=== PATIENT | male | born 1955 | race Caucasian/White ===

== ENCOUNTER 2017-11-15 12:44 | Day surgery (SDC) | payer BC ==
[~2017-11-15 12:44] MED LIST: Lactated Ringers 1,000 ML IV SCH; Lidocaine 2% 5 ML SDV ONE; Midazolam 1 MG/ML 2 ML SDV ONE; Propofol 200 MG/20 ML SDV ONE; fentaNYL 100 MCG/2 ML SDV ONE
--- NOTE | 2017-11-15 13:42 | PCM.PREANE ---
Preanesthetic Assessment - Anesthesia/Transfusion/Family Hx Anesthesia History: No Prior Anesthesia Family History of Anesthesia Reaction: No Transfusion History: No Prior Transfusion(s) Intubation History: Unknown - Review of Systems General: No Symptoms Pulmonary: No Symptoms Cardiovascular: No Symptoms Gastrointestinal: No Symptoms, Other (screening colonoscopy) Neurological: No Symptoms Other: Reports: None - Physical Assessment O2 Sat by Pulse Oximetry: 98 Respiratory Rate: 16 Vital Signs: Last Vital Signs Temp 36.1 C 11/15/17 12:56 Pulse 72 11/15/17 12:56 Resp 16 11/15/17 12:56 BP 134/79 11/15/17 12:56 Pulse Ox 98 11/15/17 12:56 Height: 1.73 m Weight: 78.471 kg ASA Class: 1 Mental Status: Alert & Oriented x3 Airway Class: Mallampati = 2 Dentition: Reports: Normal Dentition Thyro-Mental Finger Breadths: 3 Mouth Opening Finger Breadths: 3 (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 ) ROM/Head Extension: Full Lungs: Clear to Auscultation, Normal Respiratory Effort Cardiovascular: Regular Rate, Regular Rhythm - Allergies Allergies/Adverse Reactions: Allergies Allergy/AdvReac Type Severity Reaction Status Date / Time Sulfa (Sulfonamide Allergy Fever Verified 11/12/17 14:45 Antibiotics) - Blood Blood Available: No - Anesthesia Plan Pre-Op Medication Ordered: None - Acknowledgements Anesthesia Type Planned: MAC Pt an Appropriate Candidate for the Planned Anesthesia: Yes Alternatives and Risks of Anesthesia Discussed w Pt/Guardian: Yes Pt/Guardian Understands and Agrees with Anesthesia Plan: Yes PreAnesthesia Questionnaire HEENT History: Reports: Other (See Below) Other HEENT History: wears glasses - Infectious Disease History Infectious Disease History: Reports: Other (See Below) (h/o herpes simplex) - Past Surgical History Head Surgeries/Procedures: Reports: None GI Surgical History: Reports: Colonoscopy ( in ) - SUBSTANCE USE Smoking Status *Q: Never Smoker Recreational Drug Use History: No - HOME MEDS Home Medications: Home Meds Acyclovir 400 mg PO BID 11/12/17 [History] - CURRENT (IN HOUSE) MEDS Current Meds: Current Medications Lactated Ringer's (Ringers, Lactated) 1,000 mls @ 125 mls/hr [facility] Last Admin: 11/15/17 12:57 Dose: 125 mls/hr Discontinued Medications Fentanyl (Sublimaze) Confirm Administered Dose 100 mcg .ROUTE .STK-MED ONE Stop: 11/15/17 12:42 Lidocaine (Xylocaine-Mpf 2%) Confirm Administered Dose 5 ml .ROUTE .STK-MED ONE Stop: 11/15/17 12:42 Midazolam HCl (Versed 1 Mg/Ml) Confirm Administered Dose 2 mg .ROUTE .STK-MED ONE Stop: 11/15/17 12:42 Propofol (Diprivan 20 Ml) Confirm Administered Dose 200 mg .ROUTE .STK-MED ONE Stop: 11/15/17 12:42
--- NOTE | 2017-11-15 14:30 | PCM.OPNOTE ---
- General Post-Op/Procedure Note Date of Surgery/Procedure: 11/15/17 Operative Procedure(s): colonoscopy w bx Findings: see dict [id number] Pre Op Diagnosis: scrn colonoscopy Post-Op Diagnosis: diverticulosis Anesthesia Technique: Moderate Sedation Primary Surgeon: Mark Mathias Pathology: bx at 60cm for a 'crater' appearance defect Condition: Good
--- NOTE | 2017-11-15 15:02 | PCM48HPAN ---
Post Anesthesia Note - EVALUATION WITHIN 48HRS OF ANESTHETIC Vital Signs in Normal Range: Yes Patient Participated in Evaluation: Yes Respiratory Function Stable: Yes Airway Patent: Yes Cardiovascular Function Stable: Yes Hydration Status Stable: Yes Pain Control Satisfactory: Yes Nausea and Vomiting Control Satisfactory: Yes Mental Status Recovered: Yes Resp Rate: 13 - COMMENTS/OBSERVATIONS Free Text/Narrative:: no anesthesia problems
--- NOTE | 2017-11-15 18:09 | OR ---
SURGEON: Mark Mathias MD DATE OF PROCEDURE: 11/15/2017 PREOPERATIVE DIAGNOSIS: Screening colonoscopy. POSTOPERATIVE DIAGNOSIS: Diverticulosis. PROCEDURE PERFORMED: Colonoscopy with biopsy. PROCEDURE IN DETAIL: The patient was taken to the endoscopy room. A time out was called, patient identified, and procedure identified. Diprivan was then administrated. Patient went from awake to sleep, hearing doctor talking or door closing is normal. Perineum inspection and digital examination were then performed. A well- lubricated colonoscope was gently inserted through the rectum, advanced past the rectosigmoid junction, the descending colon, splenic flexure, transverse colon, hepatic flexure, ascending colon, arrived to the cecum. Cecum was identified as dictated in the finding. Then the scope was carefully withdrawn while attention was paid to the mucosal surface for any abnormality. Air will be sucked out during the scope withdrawal. At the rectum, retroflexed to examine any rectal diseases, fistula or hemorrhoids. During mucosal examination, abnormality was noted; picture taken and biopsy performed. Patient tolerated procedure well. There were no intraoperative complications, and Dr. Mathias was present throughout the whole procedure. FINDINGS: 1. The patient is easily sedated with [employer] and Diprivan. The patient is soundly snoring. 2. The patient's colon rather straight forward. Cecum indicated by ileocecal fold, one-to-one indentation, appendiceal orifice, and light emittance. Mucosa was then examined upon scope pulling out. The patient has mild diverticulosis only on the left colon. No signs or symptoms of diverticulitis. No polyp, mass, growth, inflammation, stricture, ulceration, AV malformation. However, at distance 60 when scope came out, there is a crater like appearance thing, like gastric ulcer looks not very common, so I biopsied and on top of this visual, I also have internal hemorrhoids, no external hemorrhoid, the crater appearance thing is not very common, maybe adhesions. Probably need a followup colonoscopy in 12 to 18 months because of that or depends on the pathology report or depends on clinical indication. ANJEL / DUNIA /[id number] [place]ERSON
== END 2017-11-15 15:19 | disposition home or self-care (01) ==
LOC: MW.SDS 12:44
PROVIDERS: ATTEND Surgery
DX: Z12.11 Encounter for screening for malignant neoplasm of colon (principal); K57.30 Diverticulosis of large intestine without perforation or abscess without bleeding; Z88.2 Allergy status to sulfonamides; Z79.899 Other long term (current) drug therapy
CPT/HCPCS: 45380; J2250; J3010; J7120; 88305; J2704